=== PATIENT | female | born 1950 | race Two or more races ===

== ENCOUNTER 2018-11-08 10:40 | Outpatient (CLI) | payer OTHER | END 2018-11-08 10:54 | disposition home or self-care (01) | LOC: MAMO-SONO 10:40 | DX: Z12.31 Encounter for screening mammogram for malignant neoplasm of breast (principal); Z87.898 Personal history of other specified conditions; Z00.00 Encounter for general adult medical examination without abnormal findings; Z00.01 Encounter for general adult medical examination with abnormal findings; Z12.39 Encounter for other screening for malignant neoplasm of breast ==

== ENCOUNTER 2018-11-08 11:12 | Outpatient (CLI) | payer OTHER | END 2018-11-08 11:14 | disposition home or self-care (01) | LOC: NUCLEAR 11:12 | DX: M81.0 Age-related osteoporosis without current pathological fracture (principal) ==